=== PATIENT | male | born 1965 | race Caucasian/White ===

== ENCOUNTER 2024-12-01 13:27 | Emergency (ER) | payer BC ==
[~2024-12-01] VITALS: Ht 177.8 cm; Wt 90.7 kg
[2024-12-01 13:50] VITALS: BP 136/82; TEMP 98.3; O2SAT 98
[2024-12-01] MEDS ORDERED: LIDOCAINE 1% INJ 50 ML MDV IJ ONE (14:27)
[2024-12-01] MEDS: LIDOCAINE 2% 20 ML MDV TP ONE (14:32)
[2024-12-01] MEDS ORDERED: CEPH-570 PO (15:07)
== END 2024-12-01 17:58 | disposition home or self-care (01) ==
LOC: ER 13:27
DX: S61.211A Laceration without foreign body of left index finger without damage to nail, initial encounter (principal); W22.8XXA Striking against or struck by other objects, initial encounter; Y93.89 Activity, other specified; Y92.89 Other specified places as the place of occurrence of the external cause; Y99.8 Other external cause status
CPT/HCPCS: 12002; 99283; J3490

== ENCOUNTER 2024-12-14 10:42 | Emergency (ER) | payer BC ==
[~2024-12-14] VITALS: Ht 177.8 cm; Wt 90.7 kg
[~2024-12-14 10:42] MED LIST: CEPH-570 PO
[2024-12-14 10:58] VITALS: BP 131/69; TEMP 97.9; O2SAT 99
== END 2024-12-14 11:34 | disposition home or self-care (01) ==
LOC: ER 10:44
DX: S61.412D Laceration without foreign body of left hand, subsequent encounter (principal); Z60.2 Problems related to living alone; X58.XXXD Exposure to other specified factors, subsequent encounter

== ENCOUNTER 2024-12-18 11:07 | Emergency (ER) | payer BC ==
[~2024-12-18] VITALS: Ht 177.8 cm; Wt 90.7 kg
[2024-12-18 11:23] VITALS: BP 162/105; TEMP 98
[2024-12-18 11:53] VITALS: O2SAT 98
== END 2024-12-18 11:53 | disposition home or self-care (01) ==
LOC: ER 11:11
DX: S61.211D Laceration without foreign body of left index finger without damage to nail, subsequent encounter (principal); Z48.02 Encounter for removal of sutures; Z60.2 Problems related to living alone; X58.XXXD Exposure to other specified factors, subsequent encounter